=== PATIENT | male | born 1990 | race Caucasian/White ===

== ENCOUNTER 2016-11-07 00:02 | Emergency (ER) | payer SELFPAY ==
--- NOTE | 2016-11-07 01:38 | ED ORDER SUMMARY ---
..... Patient: JOVON BARBOUR OrderSheet [facility] VisitID: [id number] [place] [address] 26y, M Registration Date/Time: 11/07/2016 ORDER SHEET Weight: 68.0 kg Allergies: No Known Drug Allergy GENERAL ORDERS: MEDICATION ORDERS: Prednisone PO 60 mg (NOW) (:35 11/07/2016 Mary SOTO) (Ack 1:42 JQuivey R.N.) (1:51 JQuivey R.N.) Benadryl PO 50 mg (NOW) (:11/07/2016 Mary SOTO) (Ack 1:42 JQuivey R.N.) (1:52 JQuivey R.N.) Pepcid PO 20 mg (NOW) (:35 11/07/2016 Mary SOTO) (Ack 1:42 JQuivey R.N.) (1:52 JQuivey R.N.) IV FLUIDS: ORDER SHEET NOTES: [Electronically signed by Anuj Tomlinson R.N. (01:55 11/07/2016)] [Electronically signed by Dawna Tinsley MD (21:22 11/10/2016)] [Electronically locked/signed by Anuj Tomlinson R.N. (:55 11/07/2016)]
--- NOTE | 2016-11-07 01:38 | ED CLINICAL REPORT ---
Clinical Report - Physicians/Mid Levels [facility] [address] [place] [address] 11/07/2016 0:02 Patient: JOVON BARBOUR Time Seen: 00:18. Arrived- By private vehicle. Historian- patient. HISTORY OF PRESENT ILLNESS Chief Complaint: SKIN RASH. This started about 3 days ago and is still present. It is described as itchy and burning. It has been generalized in location. No cause has been identified. (PT states it started while he was in [facility], but went away. Rash began to recur a few days ago, but is worse today.). Similar symptoms previously: Occasionally. Recent medical care: Not recently seen/assessed. REVIEW OF SYSTEMS No fever, chills, sore throat, cough or difficulty breathing. No hoarseness, enlarged lymph nodes, headache, eye irritation or chest pain. No abdominal pain, nausea, diarrhea, difficulty with urination or genital lesions. No joint pain or vomiting. All systems otherwise negative, except as recorded above. PAST HISTORY Problems: Tetanus Status. Immunizations. Pressure Ulcer. Hepatitis. Substance Abuse. Lifestyle / Substance Problems. Additional Surgeries: Back Surgery. Medications: None. Allergies: No Known Drug Allergy. SOCIAL HISTORY Smoker- current status unknown. History of heavy drug use: heroin, methamphetamines, marijuana. No alcohol use. ADDITIONAL NOTES The nursing notes have been reviewed. PHYSICAL EXAM Vital Signs: 11/07/2016 00:15 BP: 152/96. HR: 133. RR: 20. O2 saturation: 100%. Temp: 98.5 F. Have been reviewed. Appearance: Alert. Oriented X3. No acute distress. Eyes: Pupils equal, round and reactive to light. Conjunctivae and eyelids normal. ENT: Nose normal. Neck: Neck supple. CVS: Normal heart rate and rhythm. Heart sounds normal. Respiratory: No respiratory distress. Breath sounds normal. Abdomen: Nontender. Skin: The rash is generalized. The rash is maculopapular. (PT has patches of rash over his body, and not associated with skin folds. No tracks to indicate scabies. Pt has areas of skin edema similar to urticaria, associated with the rash. No cellulitis.). Extremities: No lower extremity edema. Neuro: (Grossly intact.). LABS, X-RAYS, AND EKG Pulse Oximetry: 11/07/2016 00:15 O2 saturation: 100%. (FIO2 - room air). Interpretation: normal. PROGRESS AND PROCEDURES Course of Care: Pt's rash was most consistent with an allergic-type rash, though the cause was unclear. He was treated accordingly, with Benadryl, prednisone, and Pepcid. Patient and family counseled in person regarding the patient's stable condition, diagnosis and need for follow-up. Parental concerns were addressed. Old medical records reviewed. Disposition: Discharged. Condition: stable. CLINICAL IMPRESSION Generalized allergic reaction with skin rash and hives of unknown cause. Skin rash. Aphthous ulcer INSTRUCTIONS Warnings: GENERAL WARNINGS: Return or contact your physician immediately if your condition worsens or changes unexpectedly, if not improving as expected, or if other problems arise. Prescription Medications: Prednisone 20 mg: take 3 orally every day for 4 days. Dispense sufficient quantity. No refills. Pepcid 20 mg: take 1 orally at bedtime for 4 days. No refills. Substitution is permissible. (disp #QS) OTC Medications: Benadryl Allergy 25 mg (available over the counter): take 1-2 orally every 6 hours for 4 days. No refill. Substitution is permissible. (disp # QS) Follow-up: Follow up with your doctor in five days if not better. Understanding of the discharge instructions verbalized by patient and parent. (Electronically signed by Dawna Tinsley MD 11/10/2016 21:22)
--- NOTE | 2016-11-07 01:38 | ED NURSING NOTES ---
Clinical Report - Nurses [facility] [address] [place] [address] 11/07/2016 0:02 Patient: JOVON BARBOUR [facility]#: [id number] TRIAGE Triage time 00:15 Nov 07 2016. Acuity: LEVEL 4. Chief Complaint: ITCHING, RASH and SKIN LESION. 00:15 11/07/16. SEPSIS SCREEN: Sepsis Screen: negative. Negative (no infection suspected/documented). RAMANDEEP COMA SCORE: Ramandeep Coma Scale: 15- eyes open spontaneously (4); best verbal response- oriented x 4 (5); best motor response- obeys commands (6). --00:22 Emily Horton R.N. 00:15 11/07/16. BP: 152/96. HR: 133. RR: 20. O2 saturation: 100%. Temp: 98.5 F. Pain level now 3/10. --00:22 Emily Horton R.N. Weight: 68 kg. Height/Length: 69 inches. BMI: 22.2. --00:15 Emily Horton R.N. Medications None. --00:21 Emily Horton R.N. Allergies No Known Drug Allergy. --00:16 Emily Horton R.N. Medication/allergy information source: the patient. --00:22 Emily Horton R.N. History Arrived by private vehicle. Historian: patient. Accompanied by family. This started today. ( linear rash in groin folds, chest). He has had skin rash. No fever, weakness, cough or difficulty breathing. Denies muscle aches. 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 SOCIAL HX: Smoker- current status unknown (cigarette). History of drug use: heroin, methamphetamines. Recently used drugs today. (smoking meth,). No alcohol use. No infectious disease exposure. ABUSE ASSESSMENT: No report of abuse. SELF HARM ASSESSMENT: A self harm assessment was performed. The patient answered "no" to the question "Have you recently felt down, depressed, or hopeless?", "Have you noticed less interest or pleasure in doing things?", "Do you have thoughts of harming or killing yourself?", "Are you here because you tried to hurt yourself?", "Have you ever tried to hurt yourself before today?", "Have you recently had thoughts about harming or killing others?" and "Do you have any dangerous items in your possession?". FALL RISK ASSESSMENT: Fall risk assessment completed. No fall risk identified. NUTRITIONAL RISK ASSESSMENT: The nutritional risk assessment revealed no deficiencies. FUNCTIONAL ASSESSMENT: Functional assessment: no impairments noted. LEARNING NEEDS ASSESSMENT: The learning needs assessment revealed no barriers. SKIN INTEGRITY ASSESSMENT: Skin integrity risk assessment completed. No skin integrity risk identified. --00:22 Emily Horton R.N. PROBLEMS: Pressure Ulcer. Hepatitis. MRSA Infection. Substance Abuse. Acute Pain. Back Injury. Lifestyle / Substance Problems. Fx back. Drug Addiction. --00:17 Emily Horton R.N. ADDITIONAL SURGERIES: Back Surgery. --00:17 Emily Horton R.N. Interventions ID band on patient. --00:22 Emily Horton R.N. PHYSICAL ASSESSMENT 00:32 11/07/16. Ambulatory to room. GENERAL / NEURO / PSYCH: Alert. Oriented X 4. ( hyper). HEENT: No facial asymmetry noted. ( white dots on tongue, abrasion like lesions on face (chin, nose, lip)). Mucous membranes are pink. RESPIRATORY: Respirations not labored. CVS: Pulses within normal limits. GI / : Abdomen soft. EXTREMITIES: ( multiple vascular track fox on both arms). SKIN: Skin is warm and dry. Well-demarcated, vesicular, raised, ulcerative, crusting skin rash with an erythematous base located in skin folds, at the waist band and on the face, neck, right arm, right hand, right leg and right foot, left arm, left hand, left leg and left foot, chest, breast(s), back, trunk, abdomen and genitalia. --00:32 Emily Horton R.N. NURSING PROGRESS NOTES 00:25 11/07/16. The initial plan of care for this patient includes an assessment with efforts to address the presence of pain. This plan of care was discussed with the patient. Patient gowned. Reassurance given. Patient identifiers checked. Call light placed in reach. Bed placed in lowest position. Brakes of bed on. Patient ready for evaluation. --00:29 Emily Horton R.N. 01:30 11/07/16. Care transferred and report given (ROHINI Golden). --01:30 Emily Horton R.N. 01:46 11/07/2016 Prednisone PO 60 mg given. Allergies verified and confirmed 5 rights. --01:51 Anuj Tomlinson R.N. 01:46 11/07/2016 Benadryl (DiphenhydrAMINE HCl) PO 50 mg given. Allergies verified, confirmed 5 rights and sedative warning given to the patient and patient's family. --01:52 Anuj Tomlinson R.N. 01:46 11/07/2016 Pepcid (Famotidine) PO 20 mg given. Allergies verified and confirmed 5 rights. --01:52 Anuj Tomlinson R.N. 01:51. The patient is calm and resting quietly. RESPIRATORY: No respiratory distress. SKIN: Skin is warm and dry. Skin color within normal limits. --01:54 Anuj Tomlinson R.N. DISPOSITION / DISCHARGE Departure time: 01:54. Condition at departure: stable. ( Dr. Tinsley aware of pt vitals prior to discharge). No learning barriers present. Discharge instructions provided and reviewed with the patient and parent. Reviewed medication(s) side effects, precautions, dosing and course information. Prescription(s) given to the patient. Patient and parent verbalized understanding. Written instructions provided in [place]. The patient was discharged home and accompanied by parent. He left the Emergency Department ambulatory and via private vehicle. Parent driving. FALL RISK ASSESSMENT: Fall risk assessment completed. No fall risk identified. --01:54 Anuj Tomlinson R.N. 01:52 11/07/16. BP: 143/96. HR: 108. RR: 16. O2 saturation: 100% on room air. Pain level now: 12/10. --01:54 Anuj Tomlinson R.N. Locked/Released at 11/07/2016 1:55 by Anuj Tomlinson R.N.
--- NOTE | 2016-11-07 01:38 | ED ORDER SUMMARY ---
..... Patient: JOVON BARBOUR OrderSheet [facility] VisitID: [id number] [place] [address] 26y, M Registration Date/Time: 11/07/2016 ORDER SHEET Weight: 68.0 kg Allergies: No Known Drug Allergy GENERAL ORDERS: MEDICATION ORDERS: Prednisone PO 60 mg (NOW) (:35 11/07/2016 Mary SOTO) (Ack 1:42 JQuivey R.N.) (1:51 JQuivey R.N.) Benadryl PO 50 mg (NOW) (:11/07/2016 Mary SOTO) (Ack 1:42 JQuivey R.N.) (1:52 JQuivey R.N.) Pepcid PO 20 mg (NOW) (:35 11/07/2016 Mary SOTO) (Ack 1:42 JQuivey R.N.) (1:52 JQuivey R.N.) IV FLUIDS: ORDER SHEET NOTES: [Electronically signed by Anuj Tomlinson R.N. (01:55 11/07/2016)] [Electronically signed by Dawna Tinsley MD (21:22 11/10/2016)] [Electronically locked/signed by Anuj Tomlinson R.N. (:55 11/07/2016)]
--- NOTE | 2016-11-07 01:38 | ED CLINICAL REPORT ---
Clinical Report - Physicians/Mid Levels [facility] [address] [place] [address] 11/07/2016 0:02 Patient: JOVON BARBOUR Time Seen: 00:18. Arrived- By private vehicle. Historian- patient. HISTORY OF PRESENT ILLNESS Chief Complaint: SKIN RASH. This started about 3 days ago and is still present. It is described as itchy and burning. It has been generalized in location. No cause has been identified. (PT states it started while he was in [facility], but went away. Rash began to recur a few days ago, but is worse today.). Similar symptoms previously: Occasionally. Recent medical care: Not recently seen/assessed. REVIEW OF SYSTEMS No fever, chills, sore throat, cough or difficulty breathing. No hoarseness, enlarged lymph nodes, headache, eye irritation or chest pain. No abdominal pain, nausea, diarrhea, difficulty with urination or genital lesions. No joint pain or vomiting. All systems otherwise negative, except as recorded above. PAST HISTORY Problems: Tetanus Status. Immunizations. Pressure Ulcer. Hepatitis. Substance Abuse. Lifestyle / Substance Problems. Additional Surgeries: Back Surgery. Medications: None. Allergies: No Known Drug Allergy. SOCIAL HISTORY Smoker- current status unknown. History of heavy drug use: heroin, methamphetamines, marijuana. No alcohol use. ADDITIONAL NOTES The nursing notes have been reviewed. PHYSICAL EXAM Vital Signs: 11/07/2016 00:15 BP: 152/96. HR: 133. RR: 20. O2 saturation: 100%. Temp: 98.5 F. Have been reviewed. Appearance: Alert. Oriented X3. No acute distress. Eyes: Pupils equal, round and reactive to light. Conjunctivae and eyelids normal. ENT: Nose normal. Neck: Neck supple. CVS: Normal heart rate and rhythm. Heart sounds normal. Respiratory: No respiratory distress. Breath sounds normal. Abdomen: Nontender. Skin: The rash is generalized. The rash is maculopapular. (PT has patches of rash over his body, and not associated with skin folds. No tracks to indicate scabies. Pt has areas of skin edema similar to urticaria, associated with the rash. No cellulitis.). Extremities: No lower extremity edema. Neuro: (Grossly intact.). LABS, X-RAYS, AND EKG Pulse Oximetry: 11/07/2016 00:15 O2 saturation: 100%. (FIO2 - room air). Interpretation: normal. PROGRESS AND PROCEDURES Course of Care: Pt's rash was most consistent with an allergic-type rash, though the cause was unclear. He was treated accordingly, with Benadryl, prednisone, and Pepcid. Patient and family counseled in person regarding the patient's stable condition, diagnosis and need for follow-up. Parental concerns were addressed. Old medical records reviewed. Disposition: Discharged. Condition: stable. CLINICAL IMPRESSION Generalized allergic reaction with skin rash and hives of unknown cause. Skin rash. Aphthous ulcer INSTRUCTIONS Warnings: GENERAL WARNINGS: Return or contact your physician immediately if your condition worsens or changes unexpectedly, if not improving as expected, or if other problems arise. Prescription Medications: Prednisone 20 mg: take 3 orally every day for 4 days. Dispense sufficient quantity. No refills. Pepcid 20 mg: take 1 orally at bedtime for 4 days. No refills. Substitution is permissible. (disp #QS) OTC Medications: Benadryl Allergy 25 mg (available over the counter): take 1-2 orally every 6 hours for 4 days. No refill. Substitution is permissible. (disp # QS) Follow-up: Follow up with your doctor in five days if not better. Understanding of the discharge instructions verbalized by patient and parent. (Electronically signed by Dawna Tinsley MD 11/10/2016 21:22)
--- NOTE | 2016-11-10 21:22 | ED DISCHARGE INSTRUCTIONS ---
Patient: JOVON BARBOUR General Instructions [facility] VisitID: [id number] [place] [address] 26y, M Registration Date/Time: 11/07/2016 Generalized allergic reaction with skin rash and hives of unknown cause. Skin rash. Aphthous ulcer INSTRUCTIONS Warnings: GENERAL WARNINGS: Return or contact your physician immediately if your condition worsens or changes unexpectedly, if not improving as expected, or if other problems arise. Prescription Medications: Prednisone 20 mg: take 3 orally every day for 4 days. Dispense sufficient quantity. No refills. Pepcid 20 mg: take 1 orally at bedtime for 4 days. No refills. Substitution is permissible. (disp #QS) OTC Medications: Benadryl Allergy 25 mg (available over the counter): take 1-2 orally every 6 hours for 4 days. No refill. Substitution is permissible. (disp # QS) Follow-up: Follow up with your doctor in five days if not better. Understanding of the discharge instructions verbalized by patient and parent. ADDITIONAL INFORMATION Dermatitis (Non-Specific) Dermatitis is an inflammation of the skin. The exact cause of your rash is not certain. However, this rash does not appear to be an infection or contagious illness. Taking care of the rash at home should help relieve your symptoms. Home Care: Keep the areas of rash clean by washing it daily. This also helps to keep the skin moist. Use a neutral pH soap such as Dove or Lever 2000. Apply a moisturizing lotion after bathing to prevent dry skin. Avoid skin irritants (wool or silk clothing, grease, oils, some medicines, harsh soaps, and detergents). Wear absorbent, soft fabrics next to the skin rather than rough or scratchy materials. Unless another medicine was prescribed, you may use Hydrocortisone cream (which you can get without a prescription) to reduce the inflammation. Follow Up: Make an appointment with your doctor in the next 1 to 2 weeks if your symptoms do not improve with the above measures. Get Prompt Medical Attention if any of the following occur: Increasing area of redness or pain in the skin Yellow crusts or drainage from the rash Joint pain New rash that appears in other areas of the body Fever of 100.4F (38C) or higher, or as directed by your healthcare provider Allergic Reaction,Generalized [Other] You are having an allergic reaction. This may cause an itchy rash, dizziness, fainting, trouble breathing or swallowing, and swelling of the face or other parts of the body. This can be caused by exposure to something in your surroundings that you have become sensitive to. This could be due to medicine or food. This could also be due to something you put on your skin or in your hair or something in the air. Often it is not possible to find out exactly what has caused your reaction. The goal of today's treatment is to relieve symptoms. The rash will usually fade over several days, but can sometimes last up to two weeks. Home Care: 1) If you know what you are allergic to, avoid it because future reactions could be worse than this one. 2) Avoid tight clothing and anything that heats up your skin (hot showers/baths, direct sunlight) since heat will make itching worse. 3) An ice pack will relieve local areas of intense itching and redness. Lanacaine cream or Solarcaine spray (or other product containing "benzocaine", available without a prescription) will reduce the itching. 4) Oral Benadryl (diphenhydramine) is an antihistamine available at drug and grocery stores. Unless a prescription antihistamine was given, Benadryl may be used to reduce itching if large areas of the skin are involved. Use lower doses during the daytime and higher doses at bedtime since the drug may make you sleepy. [NOTE: Do not use Benadryl if you have glaucoma or if you are a man with trouble urinating due to an enlarged prostate.] Claritin (loratidine) is an antihistamine that causes less drowsiness and is a good alternative for daytime use. Follow Up Follow Up with your doctor or this facility in two days if your symptoms do not continue to improve. If you had a severe reaction today, or if you have had several mild-moderate allergic reactions in the past, ask your doctor about allergy testing to find out what you are allergic to. If your reaction included dizziness, fainting or trouble breathing or swallowing, ask your doctor about carrying an Allergy Kit (injectable epinephrine) for home use. Get Prompt Medical Attention if any of the following occur: -- Trouble breathing or swallowing -- New or worse swelling in the face, eyelids, lips, mouth, tongue or throat -- Dizziness, weakness or fainting Canker Sore Canker sore (also called aphthous ulcer) is a recurring painful ulcer in the mouth. It is most painful during the first few days, and it lasts about 7-14 days before going away. The exact cause of a canker sore is not known. The canker sore is not the same as a cold sore on the lip due to herpes virus. Emotional stress or local injury to the mouth (biting your lip or dental work) can cause a canker sore to appear. Home Care: You may find that soft, jxhn-zw-jthf foods cause less pain. Avoid sharp or acidic seasonings (like vinegar and lemon). Use a straw to direct liquids away from the sore. Numbing medicines such as Anbesol or Benadryl elixir can be applied to the sore area just before eating to reduce pain temporarily. Follow Up with your doctor as directed by our staff if your sore does not improve after several days or does not heal completely within two weeks. Get Prompt Medical Attention if any of the following occur: Fever of 100.4F (38C) or higher, or as directed by your healthcare provider Inability to eat or swallow due to pain You have been given the following additional information: Dermatitis, Non-Specific Allergic Reaction, Other (General) Aphthous Ulcer (Electronically signed by Dawna Tinsley MD 11/10/2016 21:22)
--- NOTE | 2016-11-10 21:22 | ED MAR SUMMARY ---
..... Medication Administration Record [facility] [address] [place] [address] Patient: JOVON BARBOUR Visit ID: [id number] 26y, M Weight: 68.0 kg Height/Length: 69 in BMI: 22.2 ALLERGIES: No Known Drug Allergy Given 11/07/2016 Anuj Tomlinson RAbbieN. Medication Administered: PREDNISONE [PO], Dose: 60 mg PO. Medication Ordered: Prednisone PO 60 mg (NOW). Given 11/07/2016 Anuj Tomlinson R.N. Medication Administered: BENADRYL [PO] (DIPHENHYDRAMINE HCL), Dose: 50 mg PO. Medication Ordered: Benadryl PO 50 mg (NOW). Given 11/07/2016 Anuj Tomlinson, R.N. Medication Administered: PEPCID [PO] (FAMOTIDINE), Dose: 20 mg PO. Medication Ordered: Pepcid PO 20 mg (NOW).
--- NOTE | 2016-11-10 21:22 | ED MED RECONCILIATION SUMMARY ---
Patient: JOVON BARBOUR Medication Reconciliation Report [facility] VisitID: [id number] [place] [address] 26y, M Registration Date/Time: 11/07/2016 Weight: 68.0 kg Height/Length: 69 in. BMI: 22.2 ALLERGIES: No Known Drug Allergy The patient's Home Medications are listed below: NONE. The source(s) of the original Home Medication information: patient The following Medications were given to the patient in the Emergency Department: Prednisone [PO] PO 60 mg, administered: 11/07/2016 1:46:00 AM Benadryl [PO] PO 50 mg, administered: 11/07/2016 1:46:00 AM Pepcid [PO] PO 20 mg, administered: 11/07/2016 1:46:00 AM The following Medications were prescribed to the patient: Benadryl Allergy 25 mg (available over the counter): take 1-2 orally every 6 hours for 4 days. No refill. Substitution is permissible.(disp # QS) -- Dawna Tinsley MD Prednisone 20 mg: take 3 orally every day for 4 days. Dispense sufficient quantity. No refills. -- Dawna Tinsley MD Pepcid 20 mg: take 1 orally at bedtime for 4 days. No refills. Substitution is permissible.(disp #QS) -- Dawna Tinsley MD
--- NOTE | 2016-11-10 21:22 | ED MAR SUMMARY ---
..... Medication Administration Record [facility] [address] [place] [address] Patient: JOVON BARBOUR Visit ID: [id number] 26y, M Weight: 68.0 kg Height/Length: 69 in BMI: 22.2 ALLERGIES: No Known Drug Allergy Given 11/07/2016 Anuj Tomlinson RAbbieN. Medication Administered: PREDNISONE [PO], Dose: 60 mg PO. Medication Ordered: Prednisone PO 60 mg (NOW). Given 11/07/2016 Anuj Tomlinson R.N. Medication Administered: BENADRYL [PO] (DIPHENHYDRAMINE HCL), Dose: 50 mg PO. Medication Ordered: Benadryl PO 50 mg (NOW). Given 11/07/2016 Anuj Tomlinson, R.N. Medication Administered: PEPCID [PO] (FAMOTIDINE), Dose: 20 mg PO. Medication Ordered: Pepcid PO 20 mg (NOW).
--- NOTE | 2016-11-10 21:22 | ED MED RECONCILIATION SUMMARY ---
Patient: JOVON BARBOUR Medication Reconciliation Report [facility] VisitID: [id number] [place] [address] 26y, M Registration Date/Time: 11/07/2016 Weight: 68.0 kg Height/Length: 69 in. BMI: 22.2 ALLERGIES: No Known Drug Allergy The patient's Home Medications are listed below: NONE. The source(s) of the original Home Medication information: patient The following Medications were given to the patient in the Emergency Department: Prednisone [PO] PO 60 mg, administered: 11/07/2016 1:46:00 AM Benadryl [PO] PO 50 mg, administered: 11/07/2016 1:46:00 AM Pepcid [PO] PO 20 mg, administered: 11/07/2016 1:46:00 AM The following Medications were prescribed to the patient: Benadryl Allergy 25 mg (available over the counter): take 1-2 orally every 6 hours for 4 days. No refill. Substitution is permissible.(disp # QS) -- Dawna Tinsley MD Prednisone 20 mg: take 3 orally every day for 4 days. Dispense sufficient quantity. No refills. -- Dawna Tinsley MD Pepcid 20 mg: take 1 orally at bedtime for 4 days. No refills. Substitution is permissible.(disp #QS) -- Dawna Tinsley MD
== END 2016-11-07 01:54 | disposition home or self-care (01) ==
LOC: ED SRH 00:02
DX: L50.0 Allergic urticaria (principal); K12.0 Recurrent oral aphthae

== ENCOUNTER 2017-02-18 17:08 | Emergency (ER) | payer SELFPAY ==
--- NOTE | 2017-02-18 20:40 | ED NURSING NOTES ---
Clinical Report - Nurses [facility] [address] [place] [address] 02/18/2017 17:10 Patient: JOVON BARBOUR TRIAGE Triage time 17:Feb 18 2017. Acuity: LEVEL 3. Chief Complaint: LOSS OF CONSCIOUSNESS. --17:22 Paulina Ortiz R.N. 17:13 02/18/17. BP: 145/83. HR: 109. O2 saturation: 96%. Temp: 98.4 F. Pain level now: 0/10. --17:22 Paulina Ortiz R.N. Weight: 68 kg stated. Height/Length: 69 inches Per Patient. BMI: 22.2. --17:19 Paulina Ortiz R.N. Medications Suboxone Sublingual. --17:17 Paulina Ortiz R.N. Allergies No Known Drug Allergy. --17:17 Paulina Ortiz R.N. History Arrived by private vehicle. Historian: patient. Patient was last known well (1649Feb 18 2017). This is a new problem. Started while participating in light activity. Symptoms still present (1699). He has had weakness. ( light headed). 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 PAST MEDICAL HX: Immunizations: status is unknown. SOCIAL HX: Current every day heavy tobacco smoker (cigarette)- less than 1 pack per day. History of heavy drug use: heroin, methamphetamines. Recently used drugs yesterday. No alcohol use. No infectious disease exposure. SELF HARM ASSESSMENT: A self harm assessment was performed. The patient answered "no" to the question "Do you have thoughts of harming or killing yourself?". NUTRITIONAL RISK ASSESSMENT: The nutritional risk assessment revealed no deficiencies. FUNCTIONAL ASSESSMENT: Functional assessment: no impairments noted. LEARNING NEEDS ASSESSMENT: The learning needs assessment revealed no barriers. ABUSE ASSESSMENT: Abuse assessment: The patient was asked "Do you feel safe in your home?". FALL RISK ASSESSMENT: Fall risk assessment completed. Risk factors identified include patient impairment of mobility. SKIN INTEGRITY ASSESSMENT: Skin integrity risk assessment completed. No skin integrity risk identified. --17:22 Paulina Ortiz R.N. PROBLEMS: Aphthous Ulcer. Skin Rash. Allergic Reaction. Incontinent of Urine after fall. Tetanus Status. Immunizations. Pressure Ulcer. Cellulitis. Hepatitis. MRSA Infection. Substance Abuse. Acute Pain. Abnormal Test. Back Injury. Lifestyle / Substance Problems. Fx back. Back Pain. Drug Poisoning. Drug Addiction. --17:18 Paulina Ortiz R.N. ADDITIONAL SURGERIES: Back Surgery. Leg amputated. --17:18 Paulina Ortiz R.N. Interventions ID band on patient. To room. --17:22 Paulina Ortiz R.N. PHYSICAL ASSESSMENT To room via wheelchair. GENERAL / NEURO / PSYCH: The patient is disoriented to time. Patient's speech is slurred. He has had weakness. RESPIRATORY: Respirations not labored. CVS: Capillary refill less than 2 seconds. GI / : Abdomen soft and nontender. SKIN: Skin is warm and dry. --17:24 Paulina Ortiz R.N. NURSING PROGRESS NOTES monitor technician, pulse oximeter and NIBP monitor placed on patient; radiation monitor- Lead II; monitor alarms on. Patient gowned. Head of bed elevated. Patient identifiers checked. Call light placed in reach. Side rails up x 2. Bed placed in lowest position. Brakes of bed on. --17:25 Paulina Ortiz R.N. 17:43 02/18/2017 Site #1 started via IV in the left hand with an 22g angiocath, with aseptic technique and good blood return; one attempt. Blood drawn: rainbow set. Labeled in the presence of the patient and sent to the lab. Saline lock flushed with 10 mL saline. --17:43 Paulina Ortiz R.N. 17:44 02/18/2017 Started bag #1 1000 mL IV Fluids IV NS (Saline); bolus of 500 mL over 2 hour(s) via site #1 via IV pump. Allergies verified and confirmed 5 rights. IV patency established. IV site checked: no pain, redness, or swelling. IV flushed thoroughly pre- and post-medication administration. --17:44 Paulina Ortiz R.N. 19:05 02/18/2017 Ciprofloxacin (Ciprofloxacin) PO Tablets 500 mg given. Allergies verified and confirmed 5 rights. --19:05 Paulina Ortiz R.N. 19:06 02/18/17. BP: 110/85. HR: 108. RR: 16. O2 saturation: 95%. --19:08 Paulina Ortiz R.N. The patient is sleeping. Overall patient status is the same- he states feels the same. --19:08 Paulina Ortiz R.N. 20:07 02/18/2017 Started bag #1 1000 mL IV Fluids IV NS (Saline); bolus of 500 mL over 2 hour(s) via site #1 via IV pump. Allergies verified and confirmed 5 rights. IV patency established. IV site checked: no pain, redness, or swelling. IV flushed thoroughly pre- and post-medication administration. --20:07 Paulina Ortiz R.N. 20:02/18/2017 IV Fluids IV NS Discontinued: bag #1 infused. Total amount infused: 1000 mL. IV patency established. IV site checked: no pain, redness, or swelling. IV flushed thoroughly. --20:07 Paulina Ortiz R.N. DISPOSITION / DISCHARGE 20:41 02/18/17. BP: 129/68. HR: 78. RR: 18. O2 saturation: 98%. Pain level now: 0/10. --20:41 Paulina Ortiz R.N. Condition at departure: improved. No learning barriers present. Discharge instructions provided and reviewed with the patient. Reviewed medication(s) side effects, precautions, dosing and course information. Prescription(s) given to the patient. Reviewed referral to a primary care physician for followup. Patient verbalized understanding. Written instructions provided in Namibian. The patient was discharged home and accompanied by family. He left the Emergency Department ambulatory and via private vehicle. Family member driving. --21:00 Paulina Ortiz R.N. Departure time: 21:30 Feb 18 2017. --21:40 Paulina Ortiz R.N. Locked/Released at 02/18/2017 22:43 by Paulina Ortiz R.N.
--- NOTE | 2017-02-18 20:40 | ED CLINICAL REPORT ---
Clinical Report - Physicians/Mid Levels [facility] [address] [place] [address] 02/18/2017 17:10 Patient: JOVON BARBOUR Time Seen: 1725. Arrived- By private vehicle. Historian- patient. HISTORY OF PRESENT ILLNESS Chief Complaint: CHANGED MENTAL STATUS. This started today and is still present (unchanged). It was abrupt in onset and has been constant but is not gone now. Patient was last known well (yesterday). The patient has been confused. (hx of substance abuse. no recent use reported.). The patient was not found unresponsive. Not a senior care resident. No history of chronic dementia. No change in diabetic routine, alcohol recently or medication given prior to arrival. History of recent drug use. Dextro stick was not low prior to arrival. No weakness, numbness or recent fall. No difficulty walking. Usually is alert and oriented X3 and usually has normal mobility. Similar symptoms previously: Recent medical care: Not recently seen/assessed. REVIEW OF SYSTEMS No headache, head injury, chest pain or difficulty breathing. All systems otherwise negative, except as recorded above. PAST HISTORY See nurses notes. Medications: Suboxone Sublingual. Allergies: No Known Drug Allergy. SOCIAL HISTORY Never smoker. No alcohol use or drug use. No recent travel. Is a local resident. ADDITIONAL NOTES The nursing notes have been reviewed. PHYSICAL EXAM Vital Signs: 02/18/2017 17:13 BP: 145/83. HR: 109. O2 saturation: 96%. Temp: 98.4 F. Pain level now: 0/10. Blood pressure normal. Oxygen saturation normal. Appearance: Alert. No acute distress. Head: Head atraumatic. Eyes: Pupils equal, round and reactive to light. ENT: Normal ENT inspection. Airway intact. Moist mucous membranes. Pharynx normal. Neck: Normal inspection. Neck supple. CVS: Normal heart rate and rhythm. Heart sounds normal. Pulses normal. Respiratory: No respiratory distress. Breath sounds normal. Abdomen: Soft and nontender. No organomegaly. Skin: Skin warm and dry. Normal skin color. No rash. Normal skin turgor. Extremities: Extremities exhibit normal ROM. No lower extremity edema. Neuro: Alert. Oriented X 3. Mood/affect normal. Speech normal. Cranial nerves normal (as tested). No cerebellar findings. No motor deficit. No sensory deficit. Reflexes normal. LABS, X-RAYS, AND EKG Laboratory Tests: UA-Culture if indicated: (JENNIFER: 02/18/2017 18:22) ( [facility] 02/18/2017 18:46) Final results Test Result Flag Units (Reference) URINE COLOR YELLOW URINE APPEARANCE SL CLOUDY URINE GLUCOSE NEGATIVE (NEGATIVE) URINE BILIRUBIN NEGATIVE (NEGATIVE) URINE KETONE NEGATIVE (NEGATIVE) URINE SPECIFIC GRAVITY 1.010 (1.010-1.030) URINE PH 7.5 (5.0-8.0) URINE PROTEIN TRACE (NEGATIVE) URINE UROBILINOGEN 1.0 EU/dL (0.2-1.0) URINE NITRITE NEGATIVE (NEGATIVE) URINE BLOOD 1+ (NEGATIVE) URINE LEUK ESTERASE POSITIVE (NEGATIVE) URINE RBC 3-5 rbc/hpf (0-1) URINE WBC 50-75 wbc/hpf (0-1) URINE EPITHELIAL CELLS 1-3 EPI/hpf (0-5) URINE BACTERIA FEW (1+) (NONE SEEN) URINE COMMENT CULTURE INDICATED URINE CULTURES ARE SET-UP BASED ON THE FOLLOWING CRITERIA:POSITIVE NITRITEPOSITIVE LEUKOCYTE ESTERASEGREATER THAN 10 WHITE BLOOD CELLSMODERATE (2+) OR GREATER BACTERIA CBC w Diff: (JENNIFER: 02/18/2017 17:35) ( [facility] 02/18/2017 19:19) Final results Test Result Flag Units (Reference) WHITE BLOOD COUNT 7.3 K/uL (4.5-11.5) RED BLOOD COUNT 3.73 L M/uL (4.50-5.90) HEMOGLOBIN 8.4 L gm/dL (13.5-17.5) HEMATOCRIT 26.2 L % (41.0-53.0) MEAN CELL VOLUME 70 L fL (80-100) MEAN CORPUSCULAR HGB 23 L pg (26-34) HYPOCHROMIA 2+MICROCYTOSIS 2+ANISCYTOSIS 3+ MEAN CORPUSCULAR HGB CONC 32 g/dL (31-37) RED CELL DISTRIBUTION WIDTH 19.3 H % (11.6-14.8) PLATELET COUNT 369 K/uL (150-400) NEUTROPHIL % 60.1 % (50-75) LYMPH % 29.9 % (25-40) MONO % 7.7 % (3-14) EOSINOPHIL % 1.8 % (0-4) BASOPHIL % 0.5 % (0-2) PT with INR: (JENNIFER: 02/18/2017 17:35) ( [facility] 02/18/2017 17:59) Final results Test Result Flag Units (Reference) INR 1.1 (0.8-1.2) Low Intensity Therapy: INR 1.5-2.0 PT range 18.5-23.1Mod.Intensity Therapy: INR 2.0-3.0 PT range 23.1-31.5High Intensity Therapy: INR 2.5-3.5 PT range 27.4-35.5High Intensity Therapy 2: INR 3.0-4.0 PT range 31.5-39.3 Urine Drug Screen: (JENNIFER: 02/18/2017 18:22) ( [facility]/18[facility] 18[facility]48) Final results Test Result Flag Units (Reference) AMPHETAMINE/METHAMPHETAMINE NEGATIVE (NEGATIVE) BARBITURATE NEGATIVE (NEGATIVE) BENZODIAZEPINE NEGATIVE (NEGATIVE) CANNABINOID NEGATIVE (NEGATIVE) COCAINE NEGATIVE (NEGATIVE) ECSTASY NEGATIVE (NEGATIVE) METHADONE NEGATIVE (NEGATIVE) OPIATE POSITIVE H (NEGATIVE) The urine drug screen is a qualitative screening test fordrug overdose and abuse. All screen results should beconsidered as presumptive.Drugs screened for are as follows:BenzodiazepinesCocaineAmphetamines/MetamphetaminesTHC (Tetrahydrocannabinol)OpiatesBarbituratesEcstasyMethadonePositive results are unconfirmed. For confirmation, notifythe lab for the specimen to be sent to the reference lab.All confirmations must be performed by a differentmethodology.The ingestion of natural herbal and plant productscontaining Ephedra/Ephedra metabolites can produce in urineone or more substances capable of cross reacting withamphetamine/methamphetamine immunoassays. These testsprovide a preliminary result only. A more specificalternative chemical method must be used to obtain aconfirmed analytical result. CMP: (JENNIFER: 02/18/2017 17:35) ( [facility] 02/18/2017 18:15) Final results Test Result Flag Units (Reference) GLUCOSE 96 mg/dL (70-110) BUN 25 H mg/dL (7-18) CREATININE 2.2 H mg/dL (0.6-1.3) Estimated GFR 39.28 mL/min Estimated GFR- 47.61 mL/min Note: Persistent reduction over 3 months in eGFR<60 mL/min/1.73 m2 defines CKD. Patients with eGFR values>=60 mL/min/1.73 m2 may also have CKD if evidence ofpersistent proteinuria. Additional information may be foundat www.kidney.org. SODIUM 142 mmol/L (136-145) POTASSIUM 5.2 H mmol/L (3.5-5.1) CHLORIDE 106 mmol/L (98-107) CARBON DIOXIDE 27 mmol/L (21-32) CALCIUM 8.4 L mg/dL (8.5-10.1) TOTAL PROTEIN 8.4 H g/dL (6.4-8.2) ALBUMIN 2.7 L g/dL (3.3-5.0) BILIRUBIN, TOTAL 0.2 mg/dL (0.0-1.0) ALKALINE PHOSPHATASE 121 H U/L (46-116) AST (SGOT) 64 H U/L (15-37) ALT (SGPT) 112 H U/L (12-78) ETHYL ALCOHOL <3 L mg/dL (3-10) THYROID STIMULATING HORMONE 2.029 uIU/mL (0.34-3.74) Culture, Urine: (JENNIFER: 02/18/2017 18:22) ( [facility] 02/20/2017 10:18) Final results Test Result Flag Units (Reference) CULTURE, URINE DATE: 02/20/17 PRELIM REPORT: FINAL REPORT -- YST QUANTITATIVE URINE GROWTH: 10,000 TO 50,000 CFU/mL ID AND SENS TO FOLLOW: NO FURTHER WORKUP . PROGRESS AND PROCEDURES Course of Care: the patient is a pleasant 26-year-old male with past medical history significant forsubstance abuse and urinary tract infection presenting for a vaginal to mental status. Patient is alert and appropriate. Patient without any focal neurological deficits. Do not feel patient has meningitis or space occupying lesion. Patient be evaluated with laboratory studies for reevaluation of possible infectious etiology for the patient's change in mental status. Patient is cooperative and is nontoxic in appearance. Possible likely dehydration. The patient's workup was remarkable for findings above. Patient with noted urinary tract infection. Patient reports feeling significantly improved with the fluids provided. Antibiotics and also been given. Had discussion with the patient in regards to his workup. Emergency department including diagnosis, home care, follow-up, and return precautions. All questions have been answered. The patient expressed understanding of these instructions and was agreeable to them. Prior to patient's departure from the emergency department he was noted to be resting in bed and in no acute distress. Patient is much more active and appropriate. Patient is alert and oriented. Patient is nontoxic and in no acute distress. Patient has been tolerating by mouth food and water while here in the emergency department. Do not feel patient needs to be admitted to the hospital require further emergency department workup/evaluation. Disposition: Discharged. Condition: good. CLINICAL IMPRESSION 02/18/2017 19:06 BP: 110/85. HR: 108. RR: 16. O2 saturation: 95%. Blood pressure normal. Oxygen saturation normal. Mild dehydration Acute urinary tract infection with cystitis and hematuria. Moderate chronic anemia. Hyperkalemia (acute mild). (chronic kidney disease). INSTRUCTIONS Warnings: GENERAL WARNINGS: Return or contact your physician immediately if your condition worsens or changes unexpectedly, if not improving as expected, or if other problems arise. Specifically return if pain, vomiting, bleeding, breathing difficulty or fever. Your Current Medications: CONTINUE TAKING THE FOLLOWING MEDICATIONS: Suboxone Sublingual. Prescription Medications: Cipro 500 mg: take 1 tablet orally every 12 hours for 14 days. No refills. Substitution is permissible. (disp 28 tabs) Follow-up: Return to the emergency department as needed. Screening today revealed the patient's blood pressure to be in the normal range. The patient should follow up with a primary care provider for blood pressure management. Understanding of the discharge instructions verbalized by patient and family. Follow-up with: [facility], , , [address], , [place], [address] Follow up in three days. Reason for referral: recheck today's concerns. Summary of care provided to patient via paper. (Electronically signed by Edmund Rapp Dr. 02/25/2017 23:15)
--- NOTE | 2017-02-18 20:40 | ED NURSING NOTES ---
Clinical Report - Nurses [facility] [address] [place] [address] 02/18/2017 17:10 Patient: JOVON BARBOUR TRIAGE Triage time 17:Feb 18 2017. Acuity: LEVEL 3. Chief Complaint: LOSS OF CONSCIOUSNESS. --17:22 Paulina Ortiz R.N. 17:13 02/18/17. BP: 145/83. HR: 109. O2 saturation: 96%. Temp: 98.4 F. Pain level now: 0/10. --17:22 Paulina Ortiz R.N. Weight: 68 kg stated. Height/Length: 69 inches Per Patient. BMI: 22.2. --17:19 Paulina Ortiz R.N. Medications Suboxone Sublingual. --17:17 Paulina Ortiz R.N. Allergies No Known Drug Allergy. --17:17 Paulina Ortiz R.N. History Arrived by private vehicle. Historian: patient. Patient was last known well (1649Feb 18 2017). This is a new problem. Started while participating in light activity. Symptoms still present (1699). He has had weakness. ( light headed). 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 PAST MEDICAL HX: Immunizations: status is unknown. SOCIAL HX: Current every day heavy tobacco smoker (cigarette)- less than 1 pack per day. History of heavy drug use: heroin, methamphetamines. Recently used drugs yesterday. No alcohol use. No infectious disease exposure. SELF HARM ASSESSMENT: A self harm assessment was performed. The patient answered "no" to the question "Do you have thoughts of harming or killing yourself?". NUTRITIONAL RISK ASSESSMENT: The nutritional risk assessment revealed no deficiencies. FUNCTIONAL ASSESSMENT: Functional assessment: no impairments noted. LEARNING NEEDS ASSESSMENT: The learning needs assessment revealed no barriers. ABUSE ASSESSMENT: Abuse assessment: The patient was asked "Do you feel safe in your home?". FALL RISK ASSESSMENT: Fall risk assessment completed. Risk factors identified include patient impairment of mobility. SKIN INTEGRITY ASSESSMENT: Skin integrity risk assessment completed. No skin integrity risk identified. --17:22 Paulina Ortiz R.N. PROBLEMS: Aphthous Ulcer. Skin Rash. Allergic Reaction. Incontinent of Urine after fall. Tetanus Status. Immunizations. Pressure Ulcer. Cellulitis. Hepatitis. MRSA Infection. Substance Abuse. Acute Pain. Abnormal Test. Back Injury. Lifestyle / Substance Problems. Fx back. Back Pain. Drug Poisoning. Drug Addiction. --17:18 Paulina Ortiz R.N. ADDITIONAL SURGERIES: Back Surgery. Leg amputated. --17:18 Paulina Ortiz R.N. Interventions ID band on patient. To room. --17:22 Paulina Ortiz R.N. PHYSICAL ASSESSMENT To room via wheelchair. GENERAL / NEURO / PSYCH: The patient is disoriented to time. Patient's speech is slurred. He has had weakness. RESPIRATORY: Respirations not labored. CVS: Capillary refill less than 2 seconds. GI / : Abdomen soft and nontender. SKIN: Skin is warm and dry. --17:24 Paulina Ortiz R.N. NURSING PROGRESS NOTES school lunch monitor, pulse oximeter and NIBP monitor placed on patient; traffic monitor specialist- Lead II; monitor alarms on. Patient gowned. Head of bed elevated. Patient identifiers checked. Call light placed in reach. Side rails up x 2. Bed placed in lowest position. Brakes of bed on. --17:25 Paluina Ortiz R.N. 17:43 02/18/2017 Site #1 started via IV in the left hand with an 22g angiocath, with aseptic technique and good blood return; one attempt. Blood drawn: rainbow set. Labeled in the presence of the patient and sent to the lab. Saline lock flushed with 10 mL saline. --17:43 Paulina Ortiz R.N. 17:44 02/18/2017 Started bag #1 1000 mL IV Fluids IV NS (Saline); bolus of 500 mL over 2 hour(s) via site #1 via IV pump. Allergies verified and confirmed 5 rights. IV patency established. IV site checked: no pain, redness, or swelling. IV flushed thoroughly pre- and post-medication administration. --17:44 Paulina Ortiz R.N. 19:05 02/18/2017 Ciprofloxacin (Ciprofloxacin) PO Tablets 500 mg given. Allergies verified and confirmed 5 rights. --19:05 Paulina Ortiz R.N. 19:06 02/18/17. BP: 110/85. HR: 108. RR: 16. O2 saturation: 95%. --19:08 Paulina Ortiz R.N. The patient is sleeping. Overall patient status is the same- he states feels the same. --19:08 Paulina Ortiz R.N. 20:07 02/18/2017 Started bag #1 1000 mL IV Fluids IV NS (Saline); bolus of 500 mL over 2 hour(s) via site #1 via IV pump. Allergies verified and confirmed 5 rights. IV patency established. IV site checked: no pain, redness, or swelling. IV flushed thoroughly pre- and post-medication administration. --20:07 Paulina Ortiz R.N. 20:02/18/2017 IV Fluids IV NS Discontinued: bag #1 infused. Total amount infused: 1000 mL. IV patency established. IV site checked: no pain, redness, or swelling. IV flushed thoroughly. --20:07 Paulina Ortiz R.N. DISPOSITION / DISCHARGE 20:41 02/18/17. BP: 129/68. HR: 78. RR: 18. O2 saturation: 98%. Pain level now: 0/10. --20:41 Paulina Ortiz R.N. Condition at departure: improved. No learning barriers present. Discharge instructions provided and reviewed with the patient. Reviewed medication(s) side effects, precautions, dosing and course information. Prescription(s) given to the patient. Reviewed referral to a primary care physician for followup. Patient verbalized understanding. Written instructions provided in Moroccan. The patient was discharged home and accompanied by family. He left the Emergency Department ambulatory and via private vehicle. Family member driving. --21:00 Paulina Ortiz R.N. Departure time: 21:30 Feb 18 2017. --21:40 Paulina Ortiz R.N. Locked/Released at 02/18/2017 22:43 by Paulina Ortiz R.N.
--- NOTE | 2017-02-18 20:40 | ED ORDER SUMMARY ---
..... Patient: JOVON BARBOUR OrderSheet [facility] VisitID: [id number] [place] [address] 26y, M Registration Date/Time: 02/18/2017 ORDER SHEET Weight: 68.0 kg (stated) Allergies: No Known Drug Allergy GENERAL ORDERS: CBC w Diff Urgent (17:02/18/2017 Kosta Carlos) (Ack 17:36 Rishi) (17:44 KKnebel R.N.) CMP Urgent (17:02/18/2017 Kosta Carlos) (Ack 17:36 Rishi) (17:44 BABATUNDEnebel R.N.) UA-Culture if indicated Urgent (:02/18/2017 Kosta Carlos) (Ack 17:36 Rishi) (18:26 Ondinaeck R.N.) PT with INR Urgent (17:02/18/2017 Kosta Carlos) (Ack 17:36 Rishi) (17:44 KKnebel R.N.) TSH Urgent (17:02/18/2017 Kosta Carlos) (Ack 17:36 Rishi) (17:44 BABATUNDEnebel R.N.) Ethyl Alcohol Urgent (17:02/18/2017 Kosta Carlos) (Ack 17:36 Rishi) (17:44 KKnebel R.N.) Urine Drug Screen Urgent (17:02/18/2017 Kosta Carlos) (Ack 17:36 Rishi) (18:26 Ondinaeck R.N.) Pulse oximeter (17:02/18/2017 Kosta Carlos) (Ack 17:36 Rishi) (17:44 KKnebel R.N.) MEDICATION ORDERS: Ciprofloxacin PO 500 mg (NOW) (18:56 02/18/2017 Kosta Carlos) (19:05 KKnebel R.N.) IV FLUIDS: IV NS : initial bolus 1000 mL (1000 mL/hr), then none - for X1 (NOW) (17:30 02/18/2017 Kosta Carlos) (17:44 KKnebel R.N.) IV NS : initial bolus 1000 mL (1000 mL/hr), then none - for X1 (NOW) (19:54 02/18/2017 Kosta Carlos) (20:07 Cristal Caldwell) ORDER SHEET NOTES: [Electronically signed by Paulina Ortiz R.N. (22:43 02/18/2017)] [Electronically signed by Edmund Rapp Dr. (23:15 02/25/2017)] [Electronically locked/signed by Paulina Ortiz R.N. (22:43 02/18/2017)]
--- NOTE | 2017-02-18 20:40 | ED CLINICAL REPORT ---
Clinical Report - Physicians/Mid Levels Formerly [facility] [address] [place] [address] 02/18/2017 17:10 Patient: JOVON BARBOUR Time Seen: 1725. Arrived- By private vehicle. Historian- patient. HISTORY OF PRESENT ILLNESS Chief Complaint: CHANGED MENTAL STATUS. This started today and is still present (unchanged). It was abrupt in onset and has been constant but is not gone now. Patient was last known well (yesterday). The patient has been confused. (hx of substance abuse. no recent use reported.). The patient was not found unresponsive. Not a assisted resident. No history of chronic dementia. No change in diabetic routine, alcohol recently or medication given prior to arrival. History of recent drug use. Dextro stick was not low prior to arrival. No weakness, numbness or recent fall. No difficulty walking. Usually is alert and oriented X3 and usually has normal mobility. Similar symptoms previously: Recent medical care: Not recently seen/assessed. REVIEW OF SYSTEMS No headache, head injury, chest pain or difficulty breathing. All systems otherwise negative, except as recorded above. PAST HISTORY See nurses notes. Medications: Suboxone Sublingual. Allergies: No Known Drug Allergy. SOCIAL HISTORY Never smoker. No alcohol use or drug use. No recent travel. Is a local resident. ADDITIONAL NOTES The nursing notes have been reviewed. PHYSICAL EXAM Vital Signs: 02/18/2017 17:13 BP: 145/83. HR: 109. O2 saturation: 96%. Temp: 98.4 F. Pain level now: 0/10. Blood pressure normal. Oxygen saturation normal. Appearance: Alert. No acute distress. Head: Head atraumatic. Eyes: Pupils equal, round and reactive to light. ENT: Normal ENT inspection. Airway intact. Moist mucous membranes. Pharynx normal. Neck: Normal inspection. Neck supple. CVS: Normal heart rate and rhythm. Heart sounds normal. Pulses normal. Respiratory: No respiratory distress. Breath sounds normal. Abdomen: Soft and nontender. No organomegaly. Skin: Skin warm and dry. Normal skin color. No rash. Normal skin turgor. Extremities: Extremities exhibit normal ROM. No lower extremity edema. Neuro: Alert. Oriented X 3. Mood/affect normal. Speech normal. Cranial nerves normal (as tested). No cerebellar findings. No motor deficit. No sensory deficit. Reflexes normal. LABS, X-RAYS, AND EKG Laboratory Tests: UA-Culture if indicated: (JENNIFER: 02/18/2017 18:22) ( [facility] 02/18/2017 18:46) Final results Test Result Flag Units (Reference) URINE COLOR YELLOW URINE APPEARANCE SL CLOUDY URINE GLUCOSE NEGATIVE (NEGATIVE) URINE BILIRUBIN NEGATIVE (NEGATIVE) URINE KETONE NEGATIVE (NEGATIVE) URINE SPECIFIC GRAVITY 1.010 (1.010-1.030) URINE PH 7.5 (5.0-8.0) URINE PROTEIN TRACE (NEGATIVE) URINE UROBILINOGEN 1.0 EU/dL (0.2-1.0) URINE NITRITE NEGATIVE (NEGATIVE) URINE BLOOD 1+ (NEGATIVE) URINE LEUK ESTERASE POSITIVE (NEGATIVE) URINE RBC 3-5 rbc/hpf (0-1) URINE WBC 50-75 wbc/hpf (0-1) URINE EPITHELIAL CELLS 1-3 EPI/hpf (0-5) URINE BACTERIA FEW (1+) (NONE SEEN) URINE COMMENT CULTURE INDICATED URINE CULTURES ARE SET-UP BASED ON THE FOLLOWING CRITERIA:POSITIVE NITRITEPOSITIVE LEUKOCYTE ESTERASEGREATER THAN 10 WHITE BLOOD CELLSMODERATE (2+) OR GREATER BACTERIA CBC w Diff: (JENNIFER: 02/18/2017 17:35) ( [facility] 02/18/2017 19:19) Final results Test Result Flag Units (Reference) WHITE BLOOD COUNT 7.3 K/uL (4.5-11.5) RED BLOOD COUNT 3.73 L M/uL (4.50-5.90) HEMOGLOBIN 8.4 L gm/dL (13.5-17.5) HEMATOCRIT 26.2 L % (41.0-53.0) MEAN CELL VOLUME 70 L fL (80-100) MEAN CORPUSCULAR HGB 23 L pg (26-34) HYPOCHROMIA 2+MICROCYTOSIS 2+ANISCYTOSIS 3+ MEAN CORPUSCULAR HGB CONC 32 g/dL (31-37) RED CELL DISTRIBUTION WIDTH 19.3 H % (11.6-14.8) PLATELET COUNT 369 K/uL (150-400) NEUTROPHIL % 60.1 % (50-75) LYMPH % 29.9 % (25-40) MONO % 7.7 % (3-14) EOSINOPHIL % 1.8 % (0-4) BASOPHIL % 0.5 % (0-2) PT with INR: (JENNIFER: 02/18/2017 17:35) ( [facility] 02/18/2017 17:59) Final results Test Result Flag Units (Reference) INR 1.1 (0.8-1.2) Low Intensity Therapy: INR 1.5-2.0 PT range 18.5-23.1Mod.Intensity Therapy: INR 2.0-3.0 PT range 23.1-31.5High Intensity Therapy: INR 2.5-3.5 PT range 27.4-35.5High Intensity Therapy 2: INR 3.0-4.0 PT range 31.5-39.3 Urine Drug Screen: (JENNIFER: 02/18/2017 18:22) [facility] Final results Test Result Flag Units (Reference) AMPHETAMINE/METHAMPHETAMINE NEGATIVE (NEGATIVE) BARBITURATE NEGATIVE (NEGATIVE) BENZODIAZEPINE NEGATIVE (NEGATIVE) CANNABINOID NEGATIVE (NEGATIVE) COCAINE NEGATIVE (NEGATIVE) ECSTASY NEGATIVE (NEGATIVE) METHADONE NEGATIVE (NEGATIVE) OPIATE POSITIVE H (NEGATIVE) The urine drug screen is a qualitative screening test fordrug overdose and abuse. All screen results should beconsidered as presumptive.Drugs screened for are as follows:BenzodiazepinesCocaineAmphetamines/MetamphetaminesTHC (Tetrahydrocannabinol)OpiatesBarbituratesEcstasyMethadonePositive results are unconfirmed. For confirmation, notifythe lab for the specimen to be sent to the reference lab.All confirmations must be performed by a differentmethodology.The ingestion of natural herbal and plant productscontaining Ephedra/Ephedra metabolites can produce in urineone or more substances capable of cross reacting withamphetamine/methamphetamine immunoassays. These testsprovide a preliminary result only. A more specificalternative chemical method must be used to obtain aconfirmed analytical result. CMP: (JENNIFER: 02/18/2017 17:35) ( [facility] 02/18/2017 18:15) Final results Test Result Flag Units (Reference) GLUCOSE 96 mg/dL (70-110) BUN 25 H mg/dL (7-18) CREATININE 2.2 H mg/dL (0.6-1.3) Estimated GFR 39.28 mL/min Estimated GFR- 47.61 mL/min Note: Persistent reduction over 3 months in eGFR<60 mL/min/1.73 m2 defines CKD. Patients with eGFR values>=60 mL/min/1.73 m2 may also have CKD if evidence ofpersistent proteinuria. Additional information may be foundat www.kidney.org. SODIUM 142 mmol/L (136-145) POTASSIUM 5.2 H mmol/L (3.5-5.1) CHLORIDE 106 mmol/L (98-107) CARBON DIOXIDE 27 mmol/L (21-32) CALCIUM 8.4 L mg/dL (8.5-10.1) TOTAL PROTEIN 8.4 H g/dL (6.4-8.2) ALBUMIN 2.7 L g/dL (3.3-5.0) BILIRUBIN, TOTAL 0.2 mg/dL (0.0-1.0) ALKALINE PHOSPHATASE 121 H U/L (46-116) AST (SGOT) 64 H U/L (15-37) ALT (SGPT) 112 H U/L (12-78) ETHYL ALCOHOL <3 L mg/dL (3-10) THYROID STIMULATING HORMONE 2.029 uIU/mL (0.34-3.74) Culture, Urine: (JENNIFER: 02/18/2017 18:22) ( MsgRcv[facility] 02/20/2017 10:18) Final results Test Result Flag Units (Reference) CULTURE, URINE DATE: 02/20/17 PRELIM REPORT: FINAL REPORT -- YST QUANTITATIVE URINE GROWTH: 10,000 TO 50,000 CFU/mL ID AND SENS TO FOLLOW: NO FURTHER WORKUP . PROGRESS AND PROCEDURES Course of Care: the patient is a pleasant 26-year-old male with past medical history significant forsubstance abuse and urinary tract infection presenting for a vaginal to mental status. Patient is alert and appropriate. Patient without any focal neurological deficits. Do not feel patient has meningitis or space occupying lesion. Patient be evaluated with laboratory studies for reevaluation of possible infectious etiology for the patient's change in mental status. Patient is cooperative and is nontoxic in appearance. Possible likely dehydration. The patient's workup was remarkable for findings above. Patient with noted urinary tract infection. Patient reports feeling significantly improved with the fluids provided. Antibiotics and also been given. Had discussion with the patient in regards to his workup. Emergency department including diagnosis, home care, follow-up, and return precautions. All questions have been answered. The patient expressed understanding of these instructions and was agreeable to them. Prior to patient's departure from the emergency department he was noted to be resting in bed and in no acute distress. Patient is much more active and appropriate. Patient is alert and oriented. Patient is nontoxic and in no acute distress. Patient has been tolerating by mouth food and water while here in the emergency department. Do not feel patient needs to be admitted to the hospital require further emergency department workup/evaluation. Disposition: Discharged. Condition: good. CLINICAL IMPRESSION 02/18/2017 19:06 BP: 110/85. HR: 108. RR: 16. O2 saturation: 95%. Blood pressure normal. Oxygen saturation normal. Mild dehydration Acute urinary tract infection with cystitis and hematuria. Moderate chronic anemia. Hyperkalemia (acute mild). (chronic kidney disease). INSTRUCTIONS Warnings: GENERAL WARNINGS: Return or contact your physician immediately if your condition worsens or changes unexpectedly, if not improving as expected, or if other problems arise. Specifically return if pain, vomiting, bleeding, breathing difficulty or fever. Your Current Medications: CONTINUE TAKING THE FOLLOWING MEDICATIONS: Suboxone Sublingual. Prescription Medications: Cipro 500 mg: take 1 tablet orally every 12 hours for 14 days. No refills. Substitution is permissible. (disp 28 tabs) Follow-up: Return to the emergency department as needed. Screening today revealed the patient's blood pressure to be in the normal range. The patient should follow up with a primary care provider for blood pressure management. Understanding of the discharge instructions verbalized by patient and family. Follow-up with: [facility], , , [address], , [place], [address] Follow up in three days. Reason for referral: recheck today's concerns. Summary of care provided to patient via paper. (Electronically signed by Edmund Rapp Dr. 02/25/2017 23:15)
--- NOTE | 2017-02-18 20:40 | ED ORDER SUMMARY ---
..... Patient: JOVON BARBOUR OrderSheet [facility] VisitID: [id number] [place] [address] 26y, M Registration Date/Time: 02/18/2017 ORDER SHEET Weight: 68.0 kg (stated) Allergies: No Known Drug Allergy GENERAL ORDERS: CBC w Diff Urgent (17:02/18/2017 Kosta Carlos) (Ack 17:36 Rishi) (17:44 KKnebel R.N.) CMP Urgent (17:02/18/2017 Kosta Carlos) (Ack 17:36 Rishi) (17:44 BABATUNDEnebel R.N.) UA-Culture if indicated Urgent (:02/18/2017 Kosta Carlos) (Ack 17:36 Rishi) (18:26 Ondinaeck R.N.) PT with INR Urgent (17:02/18/2017 Kosta Carlos) (Ack 17:36 Rishi) (17:44 KKnebel R.N.) TSH Urgent (17:02/18/2017 Kosta Carlos) (Ack 17:36 Rishi) (17:44 BABATUNDEnebel R.N.) Ethyl Alcohol Urgent (17:02/18/2017 Kosta Carlos) (Ack 17:36 Rishi) (17:44 KKnebel R.N.) Urine Drug Screen Urgent (17:02/18/2017 Kosta Carlos) (Ack 17:36 Rishi) (18:26 Ondinaeck R.N.) Pulse oximeter (17:02/18/2017 Kosta Carlos) (Ack 17:36 Rishi) (17:44 KKnebel R.N.) MEDICATION ORDERS: Ciprofloxacin PO 500 mg (NOW) (18:56 02/18/2017 Kosta Carlos) (19:05 KKnebel R.N.) IV FLUIDS: IV NS : initial bolus 1000 mL (1000 mL/hr), then none - for X1 (NOW) (17:30 02/18/2017 Kosta Carlos) (17:44 KKnebel R.N.) IV NS : initial bolus 1000 mL (1000 mL/hr), then none - for X1 (NOW) (19:54 02/18/2017 Kosta Carlos) (20:07 Cristal Caldwell) ORDER SHEET NOTES: [Electronically signed by Paulina Ortiz R.N. (22:43 02/18/2017)] [Electronically signed by Edmund Rapp Dr. (23:15 02/25/2017)] [Electronically locked/signed by Paulina Ortiz R.N. (22:43 02/18/2017)]
--- NOTE | 2017-02-25 23:16 | ED MED RECONCILIATION SUMMARY ---
Patient: JOVON BARBOUR Medication Reconciliation Report [facility] VisitID: [id number] [address] [place] [address] 26y, M Registration Date/Time: 02/18/2017 Weight: 68.0 kg Height/Length: 69 in. BMI: 22.2 ALLERGIES: No Known Drug Allergy The patient's Home Medications are listed below: CONTINUE TAKING THE FOLLOWING MEDICATIONS: Suboxone Sublingual The source(s) of the original Home Medication information: Not obtained. The following Medications were given to the patient in the Emergency Department: IV NS IV Fluids bolus 500 mL over 2 hour(s), administered: 02/18/2017 5:44:00 PM Ciprofloxacin [PO] PO 500 mg, administered: 02/18/2017 7:05:00 PM IV NS IV Fluids bolus 500 mL over 2 hour(s), administered: 02/18/2017 8:07:00 PM The following Medications were prescribed to the patient: Cipro 500 mg: take 1 tablet orally every 12 hours for 14 days. No refills. Substitution is permissible.(disp 28 tabs) -- Edmund Rapp Dr.
--- NOTE | 2017-02-25 23:16 | ED MED RECONCILIATION SUMMARY ---
Patient: JOVON BARBOUR Medication Reconciliation Report [facility] VisitID: [id number] [address] [place] [address] 26y, M Registration Date/Time: 02/18/2017 Weight: 68.0 kg Height/Length: 69 in. BMI: 22.2 ALLERGIES: No Known Drug Allergy The patient's Home Medications are listed below: CONTINUE TAKING THE FOLLOWING MEDICATIONS: Suboxone Sublingual The source(s) of the original Home Medication information: Not obtained. The following Medications were given to the patient in the Emergency Department: IV NS IV Fluids bolus 500 mL over 2 hour(s), administered: 02/18/2017 5:44:00 PM Ciprofloxacin [PO] PO 500 mg, administered: 02/18/2017 7:05:00 PM IV NS IV Fluids bolus 500 mL over 2 hour(s), administered: 02/18/2017 8:07:00 PM The following Medications were prescribed to the patient: Cipro 500 mg: take 1 tablet orally every 12 hours for 14 days. No refills. Substitution is permissible.(disp 28 tabs) -- Edmund Rapp Dr.
--- NOTE | 2017-02-25 23:16 | ED MAR SUMMARY ---
..... Medication Administration Record [facility] [address] [place] [address] Patient: JOVON BARBOUR Visit ID: [id number] 26y, M Weight: 68.0 kg Height/Length: 69 in BMI: 22.2 ALLERGIES: No Known Drug Allergy Start 17:44 02/18/2017 Paulina Ortiz R.N., Stop 20:07 02/18/2017 Paulina Ortiz R.N. Medication Administered: IV NS (SALINE), Dose: IV Fluids, Bolus: 500 mL over 2 hour(s), Dispensed: 1000 mL bag, Site: #1 left hand. Medication Ordered: IV NS : initial bolus 1000 mL (1000 mL/hr), then none - for X1 (NOW). Given 19:05 02/18/2017 Paulina Ortiz R.N. Medication Administered: CIPROFLOXACIN [PO] (CIPROFLOXACIN), Dose: 500 mg Tablets PO. Medication Ordered: Ciprofloxacin PO 500 mg (NOW). Start 20:07 02/18/2017 Paulina Ortiz R.N. Medication Administered: IV NS (SALINE), Dose: IV Fluids, Bolus: 500 mL over 2 hour(s), Dispensed: 1000 mL bag, Site: #1 left hand. Medication Ordered: IV NS : initial bolus 1000 mL (1000 mL/hr), then none - for X1 (NOW).
--- NOTE | 2017-02-25 23:16 | ED MAR SUMMARY ---
..... Medication Administration Record [facility] [address] [place] [address] Patient: JOVON BARBOUR Visit ID: [id number] 26y, M Weight: 68.0 kg Height/Length: 69 in BMI: 22.2 ALLERGIES: No Known Drug Allergy Start 17:44 02/18/2017 Paulina Ortiz R.N., Stop 20:07 02/18/2017 Paulina Ortiz R.N. Medication Administered: IV NS (SALINE), Dose: IV Fluids, Bolus: 500 mL over 2 hour(s), Dispensed: 1000 mL bag, Site: #1 left hand. Medication Ordered: IV NS : initial bolus 1000 mL (1000 mL/hr), then none - for X1 (NOW). Given 19:05 02/18/2017 Paulina Ortiz R.N. Medication Administered: CIPROFLOXACIN [PO] (CIPROFLOXACIN), Dose: 500 mg Tablets PO. Medication Ordered: Ciprofloxacin PO 500 mg (NOW). Start 20:07 02/18/2017 Paulina Ortiz R.N. Medication Administered: IV NS (SALINE), Dose: IV Fluids, Bolus: 500 mL over 2 hour(s), Dispensed: 1000 mL bag, Site: #1 left hand. Medication Ordered: IV NS : initial bolus 1000 mL (1000 mL/hr), then none - for X1 (NOW).
--- NOTE | 2017-02-25 23:16 | ED DISCHARGE INSTRUCTIONS ---
Patient: JOVON BARBOUR General Instructions [facility] VisitID: [id number] [address] [place] [place] [address] 26y, M Registration Date/Time: 02/18/2017 02/18/2017 19:06 BP: 110/85. HR: 108. RR: 16. O2 saturation: 95%. Blood pressure normal. Oxygen saturation normal. Mild dehydration Acute urinary tract infection with cystitis and hematuria. Moderate chronic anemia. Hyperkalemia (acute mild). (chronic kidney disease). INSTRUCTIONS Warnings: GENERAL WARNINGS: Return or contact your physician immediately if your condition worsens or changes unexpectedly, if not improving as expected, or if other problems arise. Specifically return if pain, vomiting, bleeding, breathing difficulty or fever. Your Current Medications: CONTINUE TAKING THE FOLLOWING MEDICATIONS: Suboxone Sublingual. Prescription Medications: Cipro 500 mg: take 1 tablet orally every 12 hours for 14 days. No refills. Substitution is permissible. (disp 28 tabs) Follow-up: Return to the emergency department as needed. Screening today revealed the patient's blood pressure to be in the normal range. The patient should follow up with a primary care provider for blood pressure management. Understanding of the discharge instructions verbalized by patient and family. Follow-up with: [facility], , , [address], [place], [id number] Follow up in three days. Reason for referral: recheck today's concerns. Summary of care provided to patient via paper. ADDITIONAL INFORMATION Bladder Infection,Male (Adult) A bladder infection ("cystitis" or "UTI") usually causes a constant urge to urinate, and a burning when passing urine. Urine may be cloudy, smelly or dark. There may be also be pain in the lower abdomen. Cystitis in males is not common. It may be caused by a partial blockage in the urinary system that keeps the bladder from emptying completely. This is most often related to an enlarged prostate gland. Home Care: Drink lots of fluids (at least 6-8 glasses a day). This will flush the bacteria out of your bladder. Avoid sexual intercourse until your symptoms are gone. Avoid caffeine, alcohol, and spicy foods. They could irritate the bladder. A bladder infection is treated with antibiotics. You may also be given Pyridium (generic - phenazopyridine) to reduce burning with urination. This will cause urine to become a bright orange color, which can stain clothing. Follow Up with your doctor or this facility if ALL symptoms have not cleared within five days. It is important to keep your follow up appointment to discuss with your doctor the need for further tests of the urinary tract. Get Prompt Medical Attention if any of the following occur: Fever of 100.4F (38C) or higher, or as directed by your healthcare provider No improvement by the third day of treatment Increasing back or abdominal pain Repeated vomiting; unable to keep medicine down Weakness, dizziness or fainting Anemia [Type Not Specified, Adult] Red blood cells carry oxygen to the tissues of the body. Anemia is a condition where the size or number of red blood cells in the body is reduced. Iron is needed to make red blood cells. The most common cause of anemia is iron deficiency. This may be due to: i) Blood loss (heavy menstrual periods or bleeding from the stomach or intestines); or, ii) Not eating enough iron-containing foods. Other causes of anemia include certain vitamin deficiencies, chronic kidney disease or certain other chronic illnesses. Anemia causes a feeling of being tired and run down. When anemia becomes severe, the skin becomes pale and there is shortness of breath with exertion. Headaches, dizziness, leg cramps with exertion, drowsiness and fatigue are other common symptoms. Home Care: If you are having symptoms of anemia listed above: -- Do not overexert yourself. -- Talk to your doctor before flying on an airplane or traveling to high altitudes. Follow Up with your doctor as advised by our staff. Additional blood testing may be required to determine the exact cause of your anemia. If testing was done on this visit, it may take several days to get all of the results. You may call this facility or follow up with your own doctor to get the results. Get Prompt Medical Attention if any of the following occur: -- Shortness of breath or chest pain -- Worsening of dizziness, fainting -- Vomiting blood or passing red or black-colored stool Dehydration (Adult) Dehydration occurs when your body loses too much fluid. This may be the result of vomiting a lot or from diarrhea,sweating a lot, or a high fever. It may also happen if you dont drink enough fluid when youre sick. Misuse of diuretics (water pills) can also be a cause. Symptoms include thirst and feeling dizzy, weak, fatigued, or very drowsy. The diet described below is usually enough to treat most cases. Sometimes you may needmedicine. Home Care Follow these guidelines for home care: Drink at least 12 8-ounce glasses of fluid every day to overcome the dehydration. Fluid may include water; orange juice; lemonade; apple, grape, and cranberry juice; clear fruit drinks; electrolyte replacement and sports drinks; and teas and coffee without caffeine. If you have been diagnosed with a kidney disease, ask your doctor how much and what types of fluids you should drink to prevent dehydration. If you have kidney disease, drinking too much fluid can cause it build up in the your body and be dangerous to your health. If you have fever, muscle aching, or headache from a viral syndrome, you may useacetaminophen or ibuprofen, unless another medicine was prescribed for this.If you have chronic liver or kidney disease or ever had a stomach ulcer or GI bleeding, talk with your doctor before using these medicines. Don't take aspirin if you are younger than 18 and are ill with a fever.Aspirin raises the chance forsevere liver injury. Follow-up care Follow up with your health care provider if you don't get better in the next 24 to 48 hours. When to seek medical care Get prompt medical attention if any of theseoccur: Continued vomiting (cant keep liquids down) Frequent diarrhea (more than 5 times a day); blood (red or black color) or mucus in diarrhea Blood in vomit or stool Swollen abdomen or increasing abdominal pain Weakness, dizziness, or fainting Unusually drowsy or confused Reduced urine output or extreme thirst Fever of 100.4 F (38 C) oral or higher that does not get better with fever medication Hyperkalemia Hyperkalemia is a condition caused by too much potassium in the blood. Most often this occurs in persons taking potassium supplements, or those with severe kidney disease. Mild hyperkalemia usually causes no symptoms. It is only discovered with a blood test. As the potassium level rises, symptoms may include weakness, heart palpitations (rapid or irregular heartbeats), nausea, vomiting, or diarrhea. Home Care: Follow your doctors advice about any potassium supplements and diuretics (water pills) you may be taking. Additional prescription medicines may also be given to remove excess potassium. Follow Up with your doctor for a repeat blood test within the next7 days, unless told otherwise. Get Prompt Medical Attention if any of the following occur: Weakness, dizziness Irregular heartbeat, extra beats, very fast or very slow heart rate Fainting spell Nausea, vomiting, or diarrhea Chest, arm, shoulder, neck or upper back pain, or shortness of breath Reduced urination Ciprofloxacin Hydrochloride Oral tablet What is this medicine? CIPROFLOXACIN (sip esperanza FLOX a sin) is a quinolone antibiotic. It is used to treat certain kinds of bacterial infections. It will not work for colds, flu, or other viral infections. How should I use this medicine? Take this medicine by mouth with a glass of water. Follow the directions on the prescription label. Take your medicine at regular intervals. Do not take your medicine more often than directed. Take all of your medicine as directed even if you think your are better. Do not skip doses or stop your medicine early. You can take this medicine with food or on an empty stomach. It can be taken with a meal that contains dairy or calcium, but do not take it alone with a dairy product, like milk or yogurt or calcium-fortified juice. A special MedGuide will be given to you by the pharmacist with each prescription and refill. Be sure to read this information carefully each time. Talk to your butter production supervisor regarding the use of this medicine in children. Special care may be needed. What side effects may I notice from receiving this medicine? Side effects that you should report to your doctor or health care transition coordinator as soon as possible: - allergic reactions like skin rash, itching or hives, swelling of the face, lips, or tongue - breathing problems - confusion, nightmares or hallucinations - feeling faint or lightheaded, falls - irregular heartbeat - joint, muscle or tendon pain or swelling - pain or trouble passing urine -persistent headache with or without blurred vision - redness, blistering, peeling or loosening of the skin, including inside the mouth - seizure - unusual pain, numbness, tingling, or weakness Side effects that usually do not require medical attention (report to your doctor or health care transition coordinator if they continue or are bothersome): - diarrhea - nausea or stomach upset - white patches or sores in the mouth What may interact with this medicine? Do not take this medicine with any of the following medications: cisapride droperidol terfenadine tizanidine This medicine may also interact with the following medications: antacids caffeine cyclosporin didanosine (ddI) buffered tablets or powder medicines for diabetes medicines for inflammation like ibuprofen, naproxen methotrexate multivitamins omeprazole phenytoin probenecid sucralfate theophylline warfarin What if I miss a dose? If you miss a dose, take it as soon as you can. If it is almost time for your next dose, take only that dose. Do not take double or extra doses. Where should I keep my medicine? Keep out of the reach of children. Store at room temperature below 30 degrees C (86 degrees F). Keep container tightly closed. Throw away any unused medicine after the expiration date. What should I tell my health care provider before I take this medicine? They need to know if you have any of these conditions: -bone problems -cerebral disease -joint problems -irregular heartbeat -kidney disease -liver disease -myasthenia gravis -seizure disorder -tendon problems -an unusual or allergic reaction to ciprofloxacin, other antibiotics or medicines, foods, dyes, or preservatives - or trying to get -breast-feeding What should I watch for while using this medicine? Tell your doctor or health care transition coordinator if your symptoms do not improve. Do not treat diarrhea with over the counter products. Contact your doctor if you have diarrhea that lasts more than 2 days or if it is severe and watery. You may get drowsy or dizzy. Do not drive, use machinery, or do anything that needs mental alertness until you know how this medicine affects you. Do not stand or sit up quickly, especially if you are an older patient. This reduces the risk of dizzy or fainting spells. This medicine can make you more sensitive to the sun. Keep out of the sun. If you cannot avoid being in the sun, wear protective clothing and use sunscreen. Do not use sun lamps or tanning beds/booths. Avoid antacids, aluminum, calcium, iron, magnesium, and zinc products for 6 hours before and 2 hours after taking a dose of this medicine. You have been given the following additional information: Bladder Infection, Male (Adult) Anemia, Type Not Specified (Adult) Dehydration (Adult) Hyperkalemia Ciprofloxacin Hydrochloride Oral tablet (Electronically signed by Edmund Rapp Dr. 02/25/2017 23:15)
== END 2017-02-18 20:44 | disposition home or self-care (01) ==
LOC: ED SRH 17:08
DX: E86.0 Dehydration (principal); N30.91 Cystitis, unspecified with hematuria; E87.5 Hyperkalemia; N18.9 Chronic kidney disease, unspecified; D64.9 Anemia, unspecified; F17.210 Nicotine dependence, cigarettes, uncomplicated; F11.10 Opioid abuse, uncomplicated
CPT/HCPCS: 90004; 90100; 90469; 92010; 92760; 92761; 92762; 92763; 92764; 92765; 92766; 92767; 93140; 94060; 95059